=== PATIENT | female | born 1955 ===

== ENCOUNTER → 2023-08-04 10:34 | Outpatient (CLI) | payer MEDICARE, OTHER, SELFPAY ==
--- NOTE | ~2023-08-04 | MR_ITS ---
MRI of the left knee Clinical history: Pain Technique: Coronal proton density and proton density-weighted images, sagittal proton-density and T2 fat-sat images, and axial proton-density fat-saturated images were acquired. Findings: Anterior and posterior cruciate ligaments are intact. Medial collateral ligament and the la teral collateral ligament complex are intact. Popliteus tendon is intact. There is horizontal/oblique tear of the posterior horn of the medial meniscus. Lateral meniscus is in tact, without evidence of tear. Articular cartilage is well preserved in the lateral compartment. There is grade IV chondromalacia at the patellar apex extending to the medial patellar facet, with focal subchondral reactive marrow neeta ma. Femoral trochlear cartilage is intact. There is extensive moderate to high-grade chondromalacia o f the medial compartment. There is subchondral cystic change of the posterior, nonweightbearing aspec t of the medial femoral condyle. Extensor mechanism is intact. Minimal joint effusion present. No Hammer's cyst. Impression: Horizontal/oblique tear of the posterior horn of the medial meniscus. 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 Minimal joint effusion. Reviewed, dictated and finalized at location . Impression: Horizontal/oblique tear of the posterior horn of the medial meniscus. 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 Minimal joint effusion.
== END ==
DX: S83.242A Other tear of medial meniscus, current injury, left knee, initial encounter (principal); X58.XXXA Exposure to other specified factors, initial encounter
CPT/HCPCS: 73721